=== PATIENT | male | born 1970 | race Caucasian/White ===

== ENCOUNTER 2023-11-08 09:55 | Day surgery (SDC) | payer BC, SELFPAY ==
[2023-11-08] VITALS (12 sets, daily range): BP systolic 111–125; BP diastolic 68–84; PULSE 67–77; RESP 14–22; TEMP 36.5–36.8; O2SAT 94–100; BMI 24.4
--- NOTE | 2023-11-08 10:15 | PCM.HP.STD ---
HPI - General General Date of Service: 11/08/23 HPI Narrative SHIKHA BARRIENTOS, is a 53 M who presents for laparoscopic right inguinal hernia repair with mesh. Patient denies any changes since previous office visit. office visit 09/02/23 [facility] HPI: 53-year-old male presents due to right inguinal hernia. Patient states he noticed this couple weeks ago as he has a bulge at this area but when he lays down it will resolve. Patient denies any pain at the site. Patient denies any previous abdominal surgeries. Patient did see his PCP who recommended having it repaired. [facility] Medical History (Updated 10/28/23 @ 12:54 by Ivone Gill) Wears glasses Blackout Former smoker Leg cramps History of pain when walking Right inguinal hernia Kidney stones Hives UTI (urinary tract infection) Arthritis Home Medications ?Medication ?Instructions ?Recorded ?Last Taken ?Type acetaminophen 325 mg tablet (Pain 650 mg PO Q4H PRN pain 10/28/23 Unknown History Relief (acetaminophen)) ibuprofen 200 mg tablet (Advil) 400 mg PO Q6H 10/28/23 Unknown History Allergy/AdvReac Type Severity Reaction Status Date / Time macadamia nut oil Allergy Severe Anaphylaxis Verified 11/08/23 10:23 Penicillins Allergy Severe Itching Verified 11/08/23 10:23 Family History Uncle Anxiety Arthritis Cancer Mental disorder Alcoholism Surgical History (Updated 10/28/23 @ 12:54 by Ivone Gill) Hx of eye surgery Social History Smoking Status: Former smoker alcohol intake: never substance use type: does not use what type of physical activity do you participate in: other details: states always active Physical Exam Const alert, oriented x3 and no apparent distress HEENT normocephalic and head/scalp atraumatic Resp normal respiratory effort Cardio regular rate GI soft to palpation and non-tender; Negative for non-distended GI Narrative: Right inguinal hernia?reducible Palpation: Negative for guarding Extremity no clubbing, cyanosis or edema Skin no rashes or lesions noted Neuro CN's II-XII intact bilaterally Psych mental status grossly normal Assessment & Plan Assessment/Plan (1) Right inguinal hernia: PLAN: Plan Plan to do a laparoscopic right inguinal hernia repair with mesh. Reviewed the procedure with the patient including the risks, including but not limited to infection, bleeding, paresthesia, chronic pain, injury to small bowel or contents of the spermatic cord, and recurrence. Patient no further questions this time. Naty Dawkins M.D. Pager: [phone] [facility] [address] [place] [address] Office: [phone]
[2023-11-08] MEDS: Lactated Ringers 1,000 ML 15 ML IV (10:25)
--- NOTE | 2023-11-08 11:09 | PRE.ANES_ITS ---
ASA Classification* ASA Classification ASA Classification: 2 Assessment & Plan Anesthesia* Anesthesia Assessment Anesthesia Assessment: Discussed sedation and/or anesthesia options, risks, benefits, and alternatives with patient/parents/legal guardian/POA. Questions invited. The patient/parents/legal guardian/POA seems to understand and agrees to proceed with anesthesia plan. Reviewed the physical assessment, medical history, allergy history and patient home medications list prior to surgery/procedure/anesthetic and documented any changes. Performed airway and anesthesia risk assessments. Anesthesia Type Anesthesia Type: General History Source History Obtained from:: Patient and Chart Anesthesia Focused Assessment* Temperature: 98.1 F Pulse Rate: 68 Blood Pressure: 111/78 Respiratory Rate: 16 Pulse Ox: 100 Oxygen Delivery Method: Room Air Airway Assessment Mouth opens: >3 cm Mallampati Score: II Teeth Condition: Caps/Crowns (Patient has a crown. It is tight.) and Missing (Patient is missing some molars.) Neck Range of motion (ROM): Full ROM Focused Labs Anesthesia Preop lab: CBC CHEMISTRY COAG Pre-Assessment Diagnosis/Proposed Procedure Planned Operative Procedure(s): (R) Laparoscopic, Inguinal Hernia Repair w/mesh Anesthesia History Anesthesia History - principal systems architect: Anesthesia History - principal systems architect Hx Hospitalization No 10/28/23 12:54 Any Problems With Anesthesia No 10/28/23 12:54 Cholinesterase deficiency No 10/28/23 12:54 You/Your Family Experience No 10/28/23 12:54 fever (hyperthermia) with Relationship Recent Exposure to Contagious No 11/08/23 10:25 Disease Does patient have nerve No 10/28/23 12:54 stimulator Patient instructed to have device shut off --Does patient have Pacemaker No 11/08/23 10:25 or ICD? When Was Last Pacemaker Check QUESTION #4 FULL TEXT: You/Your Family Experience fever (hyperthermia) with Anesthesia Last Oral Intake Last Oral intake: Last Oral Intake NPO since 22:30 11/08/23 10:25 Meds taken in AM with sips of No 11/08/23 10:25 water? Meds patient instructed to take am of surgery PONV PONV - principal systems architect: PONV - principal systems architect Female No 10/28/23 12:54 HX of Motion Sickness No 10/28/23 12:54 HX of N/V After Surgery No 10/28/23 12:54 Non-Smoker Yes 10/28/23 12:54 Duration of Surgery greater No 10/28/23 12:54 than 60 minutes Number of Risk Factors 1 10/28/23 12:54 PONV Score Low Risk 10/28/23 12:54 Height & Weight Height & Weight: Anesthesia: Height & Weight Height 6 ft 1 in 11/08/23 10:25 Weight: 84 kg 11/08/23 10:25 Body Mass Index (BMI) 24.4 11/08/23 10:25 Respiratory Assessment Respiratory Assessment - principal systems architect: Respiratory Tract Infection Hx - principal systems architect Hx Respiratory Tract Infection Yes: FEVER 10/28/23, SINUS 10/28/23 12:54 Any additional information?: Yes Hx Respiratory Tract Infection: Yes (He had a sinus infection. Patient had temperature 99.9. lasted 1 day only) STOP Sleep Apnea STOP Sleep Apnea - principal systems architect: STOP Sleep Apnea - principal systems architect Hx Hypertension No 10/28/23 12:54 Hx Sleep Apnea No 10/28/23 12:54 CPAP BIPAP Do you snore loudly (louder No 10/28/23 12:54 than talking or can be heard Do you often feel tired/ No 10/28/23 12:54 fatigued/ sleepy during daytime? Has anyone observed you stop No 10/28/23 12:54 breathing during sleep? STOP Results Negative 10/28/23 12:54 QUESTION #5 FULL TEXT : Do you snore loudly (louder than talking or can be heard through closed doors)? Tobacco Use History Tobacco Use History - principal systems architect: Tobacco Use History - principal systems architect Tobacco Use Smoking Status Former smoker 10/28/23 12:54 Hx Tobacco Use No 10/28/23 12:54 Years Smoking Packs Smoked per Day Smoking Cessation Date was Yes - quit smoking within 15 10/28/23 12:54 within the last 15 years years Hx Smoking Cessation Date Hx Smoking Cessation Counseling Any additional information?: Yes Tobacco Use: Vapor (Patient vapes today.) Hematologic Medial History Hematologic Hx - principal systems architect: Hematologic Medical Hx - director marketing Hx of Blood Transfusion No 10/28/23 12:54 Hx of Transfusion in last 3 No 10/28/23 12:54 Months Date of Last Transfusion (if within last 3 months) Ever experience any problems No 10/28/23 12:54 with transfusion(s)? Specify any problems Hx of Preganancy in last 3 N/A 10/28/23 12:54 Months Nurse Filling Out Transfusion VCHRISTIN 10/28/23 12:54 & Questions: Date: 10/28/23 10/28/23 12:54 Time: 12:57 10/28/23 12:54 Patient unable to answer at this time (ie. confused, unrespo /Reproduction History /Reproductive History - principal systems architect: /Reproductive Hx- principal systems architect Hx Now Gestational Age (in weeks): EDC: Hx Hx Para Hx Section SAB Active Medications Active Medications: Current Medications Generic Name Dose Route Start Last Admin Trade Name Freq PRN Reason Stop Dose Admin Clindamycin Phosphate 900 mg in 50 mls @ 75 mls/hr 11/08/23 10:50 Cleocin IV 11/08/23 11:29 PREOP ONE Lactated Ringer's 1,000 mls @ 15 mls/hr 11/08/23 10:15 11/08/23 10:25 IV 15 mls/hr .Q48H SARAI Administration PFSH Medical History (Updated 11/08/23 @ 11:[address] Naty Dawkins MD) Wears glasses Blackout Former smoker Leg cramps History of pain when walking Right inguinal hernia Kidney stones Hives UTI (urinary tract infection) Arthritis Home Medications ?Medication ?Instructions ?Recorded ?Last Taken ?Type acetaminophen 325 mg tablet (Pain 650 mg PO Q4H PRN pain 10/28/23 Unknown History Relief (acetaminophen)) ibuprofen 200 mg tablet (Advil) 400 mg PO Q6H 10/28/23 Unknown History oxycodone 5 mg capsule 5 mg PO Q6H PRN pain 3 days #10 11/08/23 Unknown Rx caps Allergy/AdvReac Type Severity Reaction Status Date / Time macadamia nut oil Allergy Severe Anaphylaxis Verified 11/08/23 10:23 Penicillins Allergy Severe Itching Verified 11/08/23 10:23 Family History Uncle Anxiety Arthritis Cancer Mental disorder Alcoholism Surgical History (Updated 10/28/23 @ 12:54 by Ivone Gill) Hx of eye surgery Social History Smoking Status: Former smoker alcohol intake: never substance use type: does not use what type of physical activity do you participate in: other details: states always active Review of Systems (Anesthesia) ROS Narrative System reviewed and no additional complaints, except as documented.
[2023-11-08] MEDS: Clindamycin 900 MG/50 ML BAG 75 MG IV (11:27)
[2023-11-08] MEDS: Bupivacaine Mpf 0.5% 30 ML VIAL (13:00)
--- NOTE | 2023-11-08 13:29 | OP.PCM_ITS ---
Report of Operation Date of Procedure: 11/08/23 Pre-Operative Diagnosis: Right inguinal hernia Post-Operative Diagnosis: Right inguinal indirect inguinal hernia Surgery/Procedure Performed:: Laparoscopic right inguinal hernia repair with mesh Surgeon: Naty Dawkins hygiene coordinator: Jimmy Ramos Type of Anesthesia: General/Supplemental Anesthesiologist: Fran Weaver Special Medications: Clindamycin 900 mg IV x 1 Specimen's removed: None Estimated Blood Loss (mL): 10 cc Description of Procedure: Indications: 53-year-old male presented with right inguinal hernia which was symptomatic. Laparoscopic right inguinal hernia repair with mesh was elected patient was agreeable. Description of procedure: Patient was brought to operating room placed supine operative table. Timeout was completed verifying correct patient, procedure, site, positioning, special, prior to beginning procedure. General anesthesia was induced. Patient's arms were tucked and padded appropriately. Midline supraumbilical incision was made with a 15 blade scalpel. The fascia was elevated and incised. Entry into the abdomen was confirmed visually. The Devi trocar was placed. Laparoscope was placed. Verifying no injury during initial trocar placement. Patient was placed in Trendelenburg position. Two 5 mm trochars were placed lateral to the rectus sheath under direct visualization. Both the inguinal regions were inspected and only a right indirect inguinal hernia was seen no hernia seen on the left. The median umbilical ligament was divided sharply with scissors with electrocautery. Peritoneum was incised with the endoscopic scissors along a line 2 cm above the superior edge of the hernia defect extending from the median umbilical ligament to anterior superior iliac spine. Peritoneal flap was mobilized inferiorly using blunt and sharp dissection. The inferior epigastric vessels were exposed and symphysis pubis and identified. Oleg's ligament was identified. Dissection was continued inferiorly to the iliopubic track with care taken to avoid injury to the femoral branch of the genitofemoral nerve and lateral femoral cutaneous nerve. The direct hernia sac was reduced. A right large size Bard 3D max mesh was used. The mesh was rolled longitudinally into a compact cylinder and passed through the trocar. The cylinder was placed along the inferior aspect of the working space and unrolled into place to completely cover the direct, indirect and femoral spaces. The mesh was secured in place medially to Oleg's ligament using secure strap tacker as well as to the anterior abdominal wall. Care was taken to avoid the inferolateral triangle con taining iliac vessels and genital nerves. The peritoneal flap was closed over mesh and secured with tacks in similar positions of safety using the SecureStrap. Hemoclips were placed on a small tea r in the peritoneum. After ensuring adequate hemostasis, the trochars were removed and pneumoperitoneum allowed to escape. The supraumbilical trocar incision was closed with a 0 Vicryl figure of 8 suture. The skin was closed with 4-0 Monocryl interrupted sutures and Steri-Strips. Patient tolerated procedure well was taken to the postanesthesia care unit in stable condition. Grafts/Implants Used: Bard 3D max right large mesh Lot [id number] ref [id number] Complications none
--- NOTE | 2023-11-08 13:35 | EX.PCM.DISCH ---
Discharge Instructions Diet Discharge Diet: Light diet - advance as tolerated Activity Discharge Activity: May Not Drive (while taking narcotic pain medications.) May shower in (days): 1 Lifting Restrictions: no lifting >20 lbs x 2 wks, no strenuous exercise for 4 wks Additional Activity Instructions:: Wear scrotal support Dressing / Incision Call your doctor if your incision/area has: Continuous Slow Oozing, Sudden Increased Bleeding, Increased Pain/ Swelling, Increased Redness, Foul Smelling Discharge and Swelling at the incision site Call your doctor if you observe: Fever of 101 or Higher Remove Dressing in: 2 days Cleanse incision/area with: Soap & Water Additional Dressing/Incision Instructions:: Steri-Strips will fall off in 7 to 10 days, if they do not fall off okay to remove after 10 days. Follow Up Care Please Follow Up With: Naty Dawkins MD When: Call the office for a follow-up appointment 2 weeks; after 5 PM and on the weekends call [phone] with any concerns. Test Results: Test results from this visit will be discussed in further detail at your follow-up appointment, if applicable. Discharge Plan Admission Attending Provider: Naty Dawkins Primary Care Provider: Blanche Dennis Instructions Print Language: Slovenian Discharge Orders/Prescriptions Prescriptions: New oxycodone 5 mg capsule 5 mg PO Q6H PRN (Reason: pain) 3 Days Qty: 10 0RF Continued acetaminophen [Pain Relief (acetaminophen)] 325 mg tablet 650 mg PO Q4H PRN (Reason: pain) ibuprofen [Advil] 200 mg tablet 400 mg PO Q6H Referrals / Follow Up: Blanche Dennis MD [Primary Care Provider] - Disposition Disposition (needs filled in before D/C Order can be placed): Home, Self Care
--- NOTE | 2023-11-08 13:46 | PCM.POST.ANE ---
Anesthesia: Postop Eval I Current Vital Signs Temperature: 98.2 F Pulse Rate: 72 Blood Pressure: 124/68 Respiratory Rate: 22 Pulse Ox: 97 Oxygen Delivery Method: Room Air Assessment Airway patent: Yes Spontaneous unlabored respirations: Yes Mental status: Awake and Calm nausea: No Vomiting: No Anesthesia Complication: No Fluid Hydration Crystalloid volume administer (ml): 1,200 Total IV fluid infused: 1,200 Progress Note Post-operative progress note: DENIES PAIN Anesthesia document: Postop Eval 1 completed: Yes
[2023-11-08] MEDS: oxyCODONE 5 MG Tablet PO (15:16)
[2023-11-08] MEDS: Acetaminophen 325 MG Tablet 650 MG PO (15:16)
--- NOTE | 2023-11-08 16:41 | POSTOPAN2_ITS ---
Anesthesia Postop Eval I Sum Postop Eval Completion status Anesthesia document: Postop Eval 1 completed: Yes Anesthesia Postop Eval I Summary Anesthesia Postop Eval I Summary: Anesthesia Postop Eval I: Assessment Summary Airway patent Yes 11/08/23 13:47 MANAGER INTENSIVE [email or web address] Spontaneous unlabored Yes 11/08/23 13:47 MANAGER INTENSIVE CARE.SCHR respirations Mental status Awake,Calm 11/08/23 13:47 MANAGER INTENSIVE CARE.SCHR nausea No 11/08/23 13:47 MANAGER INTENSIVE CARE.SCHR Vomiting No 11/08/23 13:47 MANAGER INTENSIVE CARE.SCHR Anesthesia Postop Eval I: Fluid Summary Crystalloid volume administer 1,200 11/08/23 13:47 MANAGER INTENSIVE CARE.SCHR (ml) Colloids volume administered ( ml) Blood Product volume administered (ml) Total IV fluid infused 1,200 11/08/23 13:47 MANAGER INTENSIVE CARE.SCHR Anesthesia Postop Eval I: Summary Notes Anesthesia Complication No 11/08/23 13:47 MANAGER INTENSIVE CARE.SCHR Anesthesia Complication Comment: Post-operative progress note DENIES PAIN 11/08/23 13:47 MANAGER INTENSIVE CARE[facility] Anesthesia: Postop Eval II Evaluation Mental status: Awake and Calm Pain Level: 0 nausea: No Vomiting: No Complications Anesthesia Complication: No
--- NOTE | 2023-11-08 16:41 | PCM.POSTANE2 ---
Anesthesia Postop Eval I Sum Postop Eval Completion status Anesthesia document: Postop Eval 1 completed: Yes Anesthesia Postop Eval I Summary Anesthesia Postop Eval I Summary: Anesthesia Postop Eval I: Assessment Summary Airway patent Yes 11/08/23 13:47 PRESS OPERATOR [email or web address].SCHR Spontaneous unlabored Yes 11/08/23 13:47 PRESS OPERATOR MEAT.SCHR respirations Mental status Awake,Calm 11/08/23 13:47 PRESS OPERATOR MEAT.SCHR nausea No 11/08/23 13:47 PRESS OPERATOR MEAT.SCHR Vomiting No 11/08/23 13:47 PRESS OPERATOR MEAT.SCHR Anesthesia Postop Eval I: Fluid Summary Crystalloid volume administer 1,200 11/08/23 13:47 PRESS OPERATOR MEAT.SCHR (ml) Colloids volume administered ( ml) Blood Product volume administered (ml) Total IV fluid infused 1,200 11/08/23 13:47 PRESS OPERATOR MEAT.SCHR Anesthesia Postop Eval I: Summary Notes Anesthesia Complication No 11/08/23 13:47 PRESS OPERATOR MEAT.SCHR Anesthesia Complication Comment: Post-operative progress note DENIES PAIN 11/08/23 13:47 PRESS OPERATOR MEAT.[facility] Anesthesia: Postop Eval II Evaluation Mental status: Awake and Calm Pain Level: 0 nausea: No Vomiting: No Complications Anesthesia Complication: No
== END 2023-11-08 16:24 | disposition home or self-care (01) ==
LOC: SDC 09:59 → AC 10:01
PROVIDERS: PCP Internal Medicine; Referring Provider Surgery; Visit Provider Surgery
PROC: (CPT 49650; principal; 2023-11-08 11:15)
DX: K40.90 Unilateral inguinal hernia, without obstruction or gangrene, not specified as recurrent (principal); Z87.891 Personal history of nicotine dependence
CPT/HCPCS: 49650; 00840; J7120; C1760; C1781; J2405

== ENCOUNTER → 2024-04-04 | Outpatient (CLI) | payer OTHER, SELFPAY ==
--- NOTE | 2024-04-04 12:58 | RAD_ITS ---
PROCEDURE: HIP, UNI W/ PELVIS 2-3 VIEWS REASON FOR EXAM: Two-week history of right hip pain. TECHNIQUE: Three views of the right hip were obtained. COMPARISON: None. FINDINGS: No fracture. No suspicious bone lesion. Normal alignment. Marked degree of joint space narrowing with subchondral cystic changes of the acetabulum as well as the femoral head with spur formation in keeping with severe osteoarthritis. An element of avascular necrosis should be ruled out. RAD/HIP, UNI W/ Pelvis 2-3 Views IMPRESSION: Marked degree of joint space narrowing with subchondral cystic changes as descr ibed. Marked osteoarthritis and possible AVN. Reading Location: [facility]
[2024-04-04 13:09] LABS: Absolute Lymphocyte Count 2.12 X10^3/uL (0.83-4.51); Absolute Neutrophil Count 4.7 X10^3/uL (2.0-7.7); Basophil# 0.03 X10^3/uL; Basophil% 0.4 % (0-1); Eosinophil# 0.04 X10^3/uL; Eosinophils% 0.5 % (0-5); Hematocrit 36.6 % (40-54); Hemoglobin 12.8 g/dL (13.0-16.5); Lymphocyte # 2.12 X10^3/ul (0.83-4.51); Lymphocyte % 28.1 % (19-41); Mean Corpuscular Hgb 32.1 pg (27.0-32.0); Mean Corpuscular Volume 91.7 fL (80-94); Mean Platelet Vol. 9.5 fl (6.2-12.0); Monocyte# 0.63 X10^3/uL; Monocyte% 8.4 % (0-10); NRBC Flagged by Analyzer 0 % (0-5); Neutrophil # 4.69 X10^3/uL (2.7-7.7); Neutrophil % 62.2 % (47-70); Platelet Count 286 K/mm3 (150-450); RBC Distribution Width CV 13.9 % (11.6-14.6); Red Blood Count 3.99 M/mm3 (4.6-6.2); White Blood Count 7.5 K/mm3 (4.4-11.0)
[2024-04-04 14:13] LABS: ALB/GLOB Ratio 1.8 RATIO (0.9-2.4); AST(SGOT) 24 U/L (<=37); Alanine Aminotransfer ALT/SGPT 18 U/L (<=46); Albumin, Serum 4.7 g/dL (3.5-5.0); Alkaline Phosphatase 66 U/L (40-129); Anion Gap 12 (5-15); BUN 11 mg/dL (4-19); BUN/Creat Ratio 13.8 RATIO (10-20); Calcium 9.5 mg/dL (7.6-11.0); Carbon Dioxide 24.2 mmol/L (22.0-29.0); Chloride 102 mmol/L (96-108); Cholesterol 210 mg/dL (<=200); Creatinine, Serum 0.8 mg/dL (0.8-1.3); EST Glomerular Filtration Rate 105 (>60); Globulin 2.7 g/dL (2.2-4.2); Glucose 97 mg/dL (70-99); High Density Lipoprotein 56 mg/dL; Low Density Lipoprotein Calc. 135 mg/dL; PSA,Total - Annual Screen 1.67 ng/mL (0.02-4.00); Potassium 3.9 mmol/L (3.3-5.1); Protein, Total 7.4 g/dL (5.9-8.4); Sodium Level 138 mmol/L (133-145); Thyroid Stim Hormone (TSH) 0.767 uIU/mL (0.300-4.200); Total Bilirubin 0.36 mg/dL (0.00-1.30); Triglycerides 96 mg/dL; Very Low Density Lipoprotein 19 mg/dL (5-40); Vitamin D,25 Hydroxy 30.6 ng/mL (30-100); cholesterol:hdl ratio screen 3.77
== END | disposition home or self-care (01) ==
LOC: LAB 12:48
PROVIDERS: PCP Internal Medicine; Referring Provider Internal Medicine; Visit Provider Internal Medicine
DX: Z00.00 Encounter for general adult medical examination without abnormal findings (principal); M25.551 Pain in right hip; S73.191A Other sprain of right hip, initial encounter; Z12.5 Encounter for screening for malignant neoplasm of prostate; Z13.220 Encounter for screening for lipoid disorders
CPT/HCPCS: 73502; 80053; 80061; 82306; 84153; 84443; 85025; G0103

== ENCOUNTER → 2024-05-02 | Outpatient (CLI) | payer OTHER, SELFPAY ==
[2024-05-02 14:40] LABS: Iron 72 ug/dL (65-175); Iron Binding Capacity,Total 302 ug/dL (250-450); Iron Binding Capacity,Unsat 230 ug/dL (228-428)
== END | disposition home or self-care (01) ==
LOC: LAB 12:20
PROVIDERS: PCP Internal Medicine; Referring Provider Internal Medicine; Visit Provider Internal Medicine
DX: D64.9 Anemia, unspecified (principal); M16.11 Unilateral primary osteoarthritis, right hip
CPT/HCPCS: 36415; 83540; 83550

== ENCOUNTER → 2024-05-03 | Outpatient (CLI) | payer OTHER, SELFPAY | END | disposition home or self-care (01) | LOC: LABSPEC 07:10 | PROVIDERS: PCP Internal Medicine; Referring Provider Internal Medicine; Visit Provider Internal Medicine | DX: D64.9 Anemia, unspecified (principal) | CPT/HCPCS: 82274 ==